=== PATIENT | female | born 1990 | race Caucasian/White ===

== ENCOUNTER 2024-02-25 22:16 | Emergency (ER) | payer OTHER ==
[2024-02-25] MEDS ORDERED: IBUPROFEN 600 MG TABLET (FP) PO ONE (22:23)
[2024-02-25 22:26] VITALS: BP 131/75; PULSE 108; RESP 18; TEMP 99.1; BMI 28.0
[2024-02-25] MEDS: IBUPROFEN 600 MG TABLET (FP) PO ONE (22:48)
== END 2024-02-25 23:31 | disposition home or self-care (01) ==
LOC: FER 22:16
DX: S93.401A Sprain of unspecified ligament of right ankle, initial encounter (principal); X50.1XXA Overexertion from prolonged static or awkward postures, initial encounter
CPT/HCPCS: 73610-TC-RT-FY; 73630-TC-RT-FY; 99283-25